=== PATIENT | female | born 1985 | race Caucasian/White ===

== ENCOUNTER 2024-05-28 09:49 | Emergency (ER) | payer OTHER, SELFPAY ==
--- NOTE | ~2024-05-28 | XR_ITS ---
EXAMINATION: XR CHEST CLINICAL INFORMATION: Chest pain. COMPARISON: None available. TECHNIQUE: Frontal view of the chest was obtained. FINDINGS: The lungs are clear. The cardiomediastinal silhouette is normal in size. There is no pleural effusion or pneumothorax. No acute osseous abnormality. XR/XR chest 1V IMPRESSION: No acute cardiopulmonary findings. Electronically signed by: Conner Camargo MD 05/28/2024 01:41 PM EDT
--- NOTE | 2024-05-28 09:56 | ECG_ITS ---
Test Reason : CP Blood Pressure : / mmHG Vent. Rate : 083 BPM Atrial Rate : 083 BPM P-R Int : 124 ms QRS Dur : 068 ms QT Int : 366 ms P-R-T Axes : 018 068 044 degrees QTc Int : 430 ms Normal sinus rhythm Nonspecific ST abnormality Abnormal ECG No previous ECGs available Referred By: Generic ED Physician Electronically Signed By:FWAN CALL MD
[2024-05-28 10:13] VITALS: BP 132/85; PULSE 78; RESP 18; TEMP 36.8; O2SAT 96; BMI 33.4
[2024-05-28 10:45] LABS: MANUAL DIFF FLAG NO
[2024-05-28 10:46] LABS: Basophils Percent Auto 0.5 % (0-2); Eosinophils Absolute Auto 0.3 X10*3/uL (0.0-0.4); Eosinophils Percent Auto 4.2 % (0-4); Hematocrit 42.4 % (37.0-47.0); Hemoglobin 14.6 g/dl (12.0-16.0); Imm Gran Abs Auto 0.03 X10*3/uL (0.00-0.03); Imm Gran Pct Auto 0.4 % (0.0-0.4); Lymphocytes Absolute Auto 2.2 X10*3/uL (1.2-4.9); Lymphocytes Percent Auto 27.9 % (20-40); Mean Corpuscular HGB Conc 34.4 g/dl (31.0-35.0); Mean Corpuscular Hemoglobin 31.5 pg (27.0-33.0); Mean Corpuscular Volume 91.6 fL (80.0-98.0); Mean Platelet Volume 9.5 fL (9.4-12.3); Monocytes Absolute Auto 0.6 X10*3/uL (0.1-1.2); Monocytes Percent Auto 7.4 % (2-11); Neutrophils Absolute Auto 4.6 x10*3/uL (2.0-8.3); Neutrophils Percent Auto 59.6 % (45-73); Platelet Count 271 X10*3/uL (160-400); Red Blood Count 4.63 X10*6/uL (4.20-5.50); Red Cell Distribution Width 12.1 % (11.0-16.0); White Blood Count 7.8 X10*3/uL (4.8-10.8)
[2024-05-28 11:01] LABS: Alanine Aminotransferase 27 U/L (0-31); Albumin Level 4.5 g/dL (3.5-5.0); Alkaline Phosphatase 56 U/L (39-117); Anion Gap 8 (12-20); Aspartate Amino Transferase 20 U/L (5-31); Bilirubin Total 0.6 mg/dL (0.0-1.0); Blood Urea Nitrogen 15 mg/dL (9-16); Calcium 9.9 mg/dL (8.4-10.2); Carbon Dioxide 26 mmol/L (22-29); Chloride 110 mmol/L (96-108); Creatinine Clr Calc Pharmacy 100.5; Estimated Glomerular Filt Rate > 60; Glucose Random 92 mg/dL (60-115); Potassium 4.1 mmol/L (3.3-5.1); Sodium 140 mmol/L (135-145)
[2024-05-28 11:09] LABS: Troponin-I High Sensitivity < 2.7 ng/L (<3.5-17.0)
[2024-05-28 11:22] LABS: Influenza A PCR NEGATIVE (Negative); Influenza B PCR NEGATIVE (Negative); Resp Syncy Virus RNA Qual PCR NEGATIVE (Negative); SARS COV2 PCR INHOUSE NEGATIVE (Negative)
--- NOTE | 2024-05-28 15:58 | ED.ASTHMA ---
HPI - Asthma General Chief Complaint: Asthma Stated Complaint: Chest pain, SOB Time Seen by Provider: 05/28/24 15:58 Source: patient Mode of arrival: ambulatory Limitations: no limitations History of Present Illness ED Provider: Queenie Fernandes PA-C HPI Narrative: Patient is a 39 year old assigned female at with a history of asthma presenting to the emergency department today with wheezing and a dry cough. Patient states that over the last week she has been having a cough and worsening wheezing. Patient states that her inhaler was helping but now she is out.. Patient denies any dizziness, lightheadedness, abdominal pain, nausea, vomiting, fever, chills, blurry vision, double vision, loss of vision, chest pain, difficulty breathing, shortness of breath, back pain, night sweats, pain with urination, increased urinary frequency, increased urinary urgency, blood in her urine or stool, syncope or a near syncopal episode, recent trauma or falls, bowel incontinence, bladder incontinence, or any other complaints at this time. Associated symptoms: dry cough Treatments Prior to Arrival: inhaled bronchodilator Related Data Previous Rx's ?Medication ?Instructions ?Recorded albuterol sulfate 90 mcg/actuation 1 inh inhalation QID PRN shortness 05/28/24 aerosol inhaler of breath or wheezing #8.5 grams prednisone 20 mg tablet 20 mg PO DAILY 12 days #26 tabs 05/28/24 Allergies Allergy/AdvReac Type Severity Reaction Status Date / Time No Known Allergies Allergy Verified 05/28/24 10:17 Review of Systems Constitutional: Constitutional: Reports no additional constitutional complaints, Denies chills, Denies fever(s) and Denies night sweats Eyes: Eyes: Reports no additional eye complaints, Denies blurry vision, Denies change in vision, Denies diplopia, Denies eye discharge, Denies loss of vision and Denies eye pain ENT: Denies dizziness Cardiovascular: Cardiovascular: Reports no additional cardiovascular complaints, Denies chest pain, Denies lightheadedness, Denies Loss of Consciousness and Denies dyspnea Respiratory: Respiratory: Reports no additional respiratory complaints, Reports cough, Denies dyspnea and Reports wheezing Gastrointestinal: Gastrointestinal: Reports no additional gastrointestinal complaints, Denies abdominal pain, Denies melena, Denies hematochezia, Denies change in bowel habits and Denies change in stool character Genitourinary: Genitourinary: Denies hematuria, Denies urinary frequency, Denies dysuria, Denies urinary incontinence, Denies urinary hesitancy and Denies urinary urgency Musculoskeletal: Musculoskeletal: Reports no additional musculoskeletal complaints, Denies numbness and Denies tingling Neurologic: Denies dizziness, Denies loss of vision, Denies numbness and Denies tingling Psychiatric: Psychiatric: Reports no additional psychiatric complaints Endocrine: Endocrine: Reports no additional endocrine complaints Hematologic/Lymphatic: Hematologic/Lymphatic: Reports no additional hematologic/lymphatic complaints Allergic/Immunologic: Allergic/Immunologic: Reports no additional allergic/immunologic complaints and Reports wheezing PMFSH Past Medical History Attestation statement: The following information was validated with the patient. Source: old records reviewed and nursing notes reviewed Social History Social History Advance Directives: No Advance Directives Information Provided: Yes Physical Exam Vital Signs: Vital Signs: Last Vital Signs Temp 0 F L 05/28/24 16:53 Pulse 82 05/28/24 16:53 Resp 18 05/28/24 16:53 BP 00/0 L 05/28/24 16:53 Pulse Ox 96 05/28/24 10:13 O2 Del Method Room Air 05/28/24 16:53 O2 Flow Rate 95 05/28/24 16:53 BMI result Body Mass Index 33.4 Const: General: cooperative, no acute distress, alert and awake Nutritional Appearance: well nourished Orientation/consciousness: patient oriented x3 Limitations: no limitations HEENT: Head: Yes normal to inspection and Yes atraumatic Ears: hearing grossly normal bilaterally and external ears normal General nose exam: Normal external nose present, no nasal discharge noted and no epistaxis Face and sinus: Yes normal facial exam, No abrasion and No laceration Mouth: Normal oral and palatal mucosa present, no drooling and no muffled voice Eyes: General: appearance normal, both eyes and all related structures Periorbital: periorbital findings normal Eyelids: Yes eyelids normal Conjunctivae: conjunctivae normal Pupils: Equal, round and reactive pupils present EOM: EOMs intact bilaterally Neck: Neck: Yes normal visual inspection, Yes full ROM and Yes no lymphadenopathy Chest: Chest palpation & inspection: normal inspection of the chest Resp: Effort & Inspection: normal respiratory effort, able to speak in complete sentences and Actively coughing Quality: dry Auscultation: wheezes throughout GI: Inspection: Yes normal to inspection Neuro: General: patient oriented x3 and moves all extremities Cranial nerves: Yes Equal, round and reactive pupils present Cognition (Neuro): normal cognition Extrem: General: Yes normal to inspection, Yes full ROM and Yes capillary refill normal Psych: Appearance: grossly normal Mental Status: mental status grossly normal Affect: normal affect Attitude: cooperative Thought process: Normal thought process present Thought content: Normal thought content present Insight: Good insight present (Psych) Medications Administered Discontinued Medications Generic Name Dose Route Start Last Admin Trade Name Graciela PRN Reason Stop Dose Admin Albuterol Sulfate 2 puff 05/28/24 16:40 05/28/24 16:46 Albuterol Sulfate 90 Mcg 8 Gm Inhaler INHALE 05/28/24 16:41 2 puff ONCE ONE Administration Albuterol Sulfate 5 mg/ 0 mg 05/28/24 16:12 05/28/24 16:19 Albuterol/Ipratropium 3 ml INHALE 05/28/24 16:13 7.5 each ONCE ONE Administration Methylprednisolone Sodium Succinate 60 mg 05/28/24 15:59 05/28/24 16:06 Methylprednisolone Sod Succ 125 Mg/2 Ml Vial IM 05/28/24 16:00 60 mg ONCE ONE Administration Medical Decision Making Medical Decision Making [facility] Narrative: Patient is a 39 year old assigned female at with a history of asthma presenting to the emergency department today with a cough and wheezing. Patient's physical exam was as noted in the physical exam portion of this note. Patient's blood work was unremarkable. Patient's EKG was unremarkable. Patient's chest x-ray showed no acute process. I explained my physical exam findings as well as all test results to the patient. I answered all questions asked by the patient. Patient received IM Solu-medrol and a breathing treatment which she stated helped her symptoms significantly. I stressed the importance of the patient taking her medication as directed (either prescribed or as the over the counter packaging recommends). I stressed the importance of the patient following up with her primary care provider. I stressed the importance of the patient returning to the emergency department immediately if her symptoms were to worsen or if she were to develop any dizziness, shortness of breath, difficulty breathing, chest pain, blurry vision, loss of vision, nausea, vomiting, abdominal pain, fever, chills, back pain, or any other complaints. Patient verbalized agreement and understanding with this treatment plan and discharge. Differential Diagnosis Differential Diagnoses: The differential diagnosis associated with the presentation includes Asthma exacerbation Cough Wheezing Admission/Observation Consideration of admission/observation: Escalation of care including admission/observation considered Patient would have been admitted to the hospital had her work up had any findings where hospital admission was appropriate and her clinical presentation warranted hospital admission. Lab Data [facility] Lab Attestation statement: I reviewed the patient's lab results. My interpretation of these results are in the [facility] Rationale portion of this note. 05/28/24 10:39 05/28/24 10:39 Labs: Lab Results 05/28/24 Range/Units 10:39 WBC 7.8 (4.8-10.8) X10*3/uL RBC 4.63 (4.20-5.50) X10*6/uL Hgb 14.6 (12.0-16.0) g/dl Hct 42.4 (37.0-47.0) % MCV 91.6 (80.0-98.0) fL MCH 31.5 (27.0-33.0) pg MCHC 34.4 (31.0-35.0) g/dl RDW 12.1 (11.0-16.0) % Plt Count 271 (160-400) X10*3/uL MPV 9.5 (9.4-12.3) fL Immature Gran % (Auto) 0.4 (0.0-0.4) % Neut % (Auto) 59.6 (45-73) % Lymph % (Auto) 27.9 (20-40) % [place] % (Auto) 7.4 (2-11) % Eos % (Auto) 4.2 H (0-4) % Baso % (Auto) 0.5 (0-2) % Lymph # (Auto) 2.2 (1.2-4.9) X10*3/uL [place] # (Auto) 0.6 (0.1-1.2) X10*3/uL Eos # (Auto) 0.3 (0.0-0.4) X10*3/uL Baso # (Auto) 0.0 (0.0-0.2) X10*3/uL Abs Immat Gran (auto) 0.03 (0.00-0.03) X10*3/uL Absolute Neuts (auto) 4.6 (2.0-8.3) x10*3/uL Absolute Nucleated RBC 0.000 (0.0-0.012) X10*3/uL Nucleated RBC % (auto) 0.0 (0.0-0.2) /100WBC Sodium 140 (135-145) mmol/L Potassium 4.1 (3.3-5.1) mmol/L Chloride 110 H (96-108) mmol/L Carbon Dioxide 26 (22-29) mmol/L Anion Gap 8 L (12-20) BUN 15 (9-16) mg/dL Creatinine 0.75 (0.5-1.4) mg/dL Estim Creat Clear Calc 100.5 Estimated GFR > 60 Random Glucose 92 (60-115) mg/dL Calcium 9.9 (8.4-10.2) mg/dL Total Bilirubin 0.6 (0.0-1.0) mg/dL AST 20 (5-31) U/L ALT 27 (0-31) U/L Alkaline Phosphatase 56 (39-117) U/L Troponin I High Sens < 2.7 (<3.5-17.0) ng/L Total Protein 8.0 (6.5-8.0) g/dL Albumin 4.5 (3.5-5.0) g/dL Influenza Type A (PCR) NEGATIVE (Negative) Influenza Type B (PCR) NEGATIVE (Negative) RSV RNA Qual (PCR) NEGATIVE (Negative) SARS-CoV-2 RNA (RT-PCR) NEGATIVE (Negative) Independent Interpretation I performed an independent interpretation of an: Plain X-Ray Interpretation: My interpretation is in agreement with the radiologist's impression of this imaging study. EXAMINATION: XR CHEST CLINICAL INFORMATION: Chest pain. COMPARISON: None available. TECHNIQUE: Frontal view of the chest was obtained. FINDINGS: The lungs are clear. The cardiomediastinal silhouette is normal in size. There is no pleural effusion or pneumothorax. No acute osseous abnormality. XR/XR chest 1V IMPRESSION: No acute cardiopulmonary findings. Electronically signed by: Conner Camargo MD 05/28/2024 01:41 PM EDT Dictated By: Conner Camargo MD Signed By: Electronically signed by Conner Camargo MD 05/28/24 2261 Radiology Impression Discussion of test interpretation with radiology: I have reviewed the radiologist's reading. Discharge Plan Discharge Clinical Impression: Asthma with acute exacerbation Patient Disposition: Home, Self-Care Instructions: Asthma (DC) Additional Instructions: Follow up with your primary care provider. Return to the emergency department immediately if your symptoms worsen or if you develop any dizziness, shortness of breath, difficulty breathing, chest pain, blurry vision, loss of vision, nausea, vomiting, abdominal pain, fever, chills, back pain, or any other complaints. Prescriptions: New albuterol sulfate 90 mcg/actuation HFA aerosol inhaler 1 inh inhalation QID PRN (Reason: shortness of breath or wheezing) Qty: 8.5 0RF prednisone 20 mg tablet 20 mg PO DAILY 12 Days Qty: 26 0RF Rx Instructions: Take 3 tablets for 5 days THEN; Take 2 tablets for 4 days THEN; Take 1 tablet for 3 days Referrals: [facility] Family Medicine [Provider Group] (Call to establish and follow up with a primary care provider. If you already have a primary care provider, please follow up with them.) [facility] [Provider Group] (Call to establish and follow up with a primary care provider. If you already have a primary care provider, please follow up with them.) [facility] [Provider Group] (Call to establish and follow up with a primary care provider. If you already have a primary care provider, please follow up with them.) Stand Alone Forms: Work/School Release Interventions: ED Discharge Assessment Last Done: 05/28/24 16:53 Discharge Date/Time: 05/28/24 16:56 Print Language: Ghanaian
[2024-05-28] MEDS: methylPREDNISolone Sod Succ 125 MG/2 ML VIAL 60 MG IM (16:06)
[2024-05-28 16:12] VITALS: PULSE 76; RESP 25; O2SAT 97
[2024-05-28] MEDS: Albuterol Sulfate 5 MG, Albuterol/Iprat 2.5/0.5MG 3 ML 3 ML INHALE (16:19)
[2024-05-28] MEDS: Albuterol Sulfate 90 MCG 8 GM INHALER 2 PUFF INHALE (16:46)
[2024-05-28 16:47] VITALS: PULSE 82; RESP 18; O2SAT 98
[2024-05-28 16:53] VITALS: BP 00/0; PULSE 82; RESP 18; TEMP -17.7; TEMP 0
== END 2024-05-28 16:56 | disposition home or self-care (01) ==
PROVIDERS: Emergency Provider Emergency Medicine
DX: J45.901 Unspecified asthma with (acute) exacerbation (principal); R05.9 Cough, unspecified; R07.89 Other chest pain; Z03.818 Encounter for observation for suspected exposure to other biological agents ruled out; Z79.899 Other long term (current) drug therapy
CPT/HCPCS: 0241U; 71045; 80053; 84484; 85025; 93005; 94640; 96372; 99284; 99285; J2919

== ENCOUNTER → 2024-05-28 09:56 | Outpatient (BNV) | payer OTHER, SELFPAY | PROVIDERS: Visit Provider Internal Medicine Cardiovascular Disease | DX: R07.9 Chest pain, unspecified (principal); R06.02 Shortness of breath | CPT/HCPCS: 93010 ==

== ENCOUNTER 2024-12-04 09:46 | Emergency (ER) | payer OTHER, SELFPAY ==
--- NOTE | ~2024-12-04 | XR_ITS ---
EXAMINATION: XR SHOULDER, LEFT CLINICAL INFORMATION: pain, tingling COMPARISON: None available. TECHNIQUE: AP external rotation, Grashey, scapular Y, and axillary views of the left shoulder. FINDINGS: Normal bone mineralization. No fracture, dislocation, or suspicious bone lesion. Normal alignment. The glenohumeral joint is normal. The AC joint is normal. There is a type III acromion. No undersurface spurring. The subacromial space is preserved. Remainder of the soft tissue and bony structures appear normal. XR/XR shoulder LT min 2V IMPRESSION: Normal left shoulder. Electronically signed by: Casey Mar MD 12/04/2024 10:39 AM EDT
[2024-12-04 10:10] VITALS: BP 127/81; PULSE 71; RESP 16; TEMP 37; O2SAT 97; BMI 33.0
--- NOTE | 2024-12-04 11:18 | ED.EXTPRO ---
HPI - Extremity Problem General Chief complaint: Extremity Problem Stated complaint: 2 Weeks- L Shoulder/ Arm Pain Time Seen by Provider: 12/04/24 11:18 Source: patient and RN notes reviewed Mode of arrival: ambulatory Limitations: no limitations History of Present Illness ED Provider: Delmis Li PA-C HPI Narrative: This is a 39-year-old female, with a history of prediabetes, who presents emergency department with concerns for left shoulder pain for the last 2 weeks. Patient denies any recent trauma or injury. 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 Patient states that her pain is constant however worsens with movement. She denies any chest pain or shortness of breath. Denies taking any medications at home to treat her current symptoms. She denies any recent travel, surgery, hospitalizations. No other complaints or concerns at this time. MD Complaint: extremity pain Onset (ago): week(s) Pain Consistency: constant Location: left and upper extremity Quality: aching Radiation: none Relieving factors: immobilization Exacerbating factors: range of motion and palpation Associated symptoms: denies other symptoms Related Data Previous Rx's ?Medication ?Instructions ?Recorded albuterol sulfate 90 mcg/actuation 1 inh inhalation QID PRN shortness 05/28/24 aerosol inhaler of breath or wheezing #8.5 grams prednisone 20 mg tablet 20 mg PO DAILY 12 days #26 tabs 05/28/24 acetaminophen 500 mg tablet 1,000 mg (2 x 500 mg) PO Q6H PRN 12/04/24 (Tylenol Extra Strength) pain #30 tabs ibuprofen 600 mg tablet 600 mg PO Q6H PRN pain #30 tabs 12/04/24 lidocaine 4 % topical patch 1 patch topical DAILY PRN pain #30 12/04/24 (AsperFlex (lidocaine)) ea Allergies Allergy/AdvReac Type Severity Reaction Status Date / Time No Known Allergies Allergy Verified 12/04/24 10:12 Review of Systems Review of Systems: Yes all other systems are reviewed and are negative Constitutional: Constitutional: Reports as per [facility] Social History Social History Advance Directives: No Advance Directives Information Provided: Yes Physical Exam Vital Signs: Vital Signs: Last Vital Signs Temp 98.6 F 12/04/24 10:10 Pulse 71 12/04/24 10:10 Resp 16 12/04/24 10:10 BP 127/81 12/04/24 10:10 Pulse Ox 97 12/04/24 10:10 O2 Del Method Room Air 12/04/24 10:10 BMI result Body Mass Index 33.0 Const: General: cooperative, comfortable and no acute distress Orientation/consciousness: patient oriented x3 Limitations: no limitations HEENT: Head: Yes normal to inspection, Yes normocephalic and Yes atraumatic Ears: hearing grossly normal bilaterally General nose exam: Normal external nose present Face and sinus: Yes normal facial exam Mouth: Normal oral and palatal mucosa present, oropharynx normal and moist mucous membranes Throat: Yes posterior oropharynx normal Eyes: General: appearance normal, both eyes and all related structures Eyelids: Yes eyelids normal Conjunctivae: conjunctivae normal Sclerae: sclerae normal Pupils: Equal, round and reactive pupils present EOM: EOMs intact bilaterally Neck: Neck: Yes normal visual inspection, Yes full ROM and Yes no lymphadenopathy Lymphatic: no lymphadenopathy noted Chest: Chest palpation & inspection: normal inspection of the chest Resp: Effort & Inspection: normal respiratory effort and able to speak in complete sentences Auscultation: clear to auscultation bilaterally, no crackles, no rales, no rhonchi and no wheezes Cardio: Rate: regular rate Rhythm: regular rhythm Heart sounds: S1 normal heart sound present and S2 normal heart sound present GI: Inspection: Yes normal to inspection Skin: General skin exam: no rashes or lesions noted Trauma: no lacerations or abrasions Wounds: no wounds Neuro: General: patient oriented x3 and moves all extremities Cranial nerves: Yes Equal, round and reactive pupils present Extrem: Other: Left shoulder tender to palpation along the AC joint, full ROM with pain elicited. No overlying skin changes or warmth. Negative empty can, pain with lift-off test. Strong radial pulse. General: Yes normal to inspection Right upper extremity: normal to inspection Left upper extremity: normal to inspection Right lower extremity: normal to inspection Left lower extremity: normal to inspection Medical Decision Making Medical Decision Making MDM Narrative: This is a 39-year-old female who presents emergency department with complaints of left shoulder pain. On arrival, vital signs within normal limits. She was speaking in full sentences under no acute distress. Patient with tenderness palpation along the left AC joint. She has no chest pain or shortness of breath. Pain worsens with movement and with palpation. X-rays were performed without any bony abnormality seen. Given patient has tenderness palpation along the left AC joint, this may be rotator cuff like injury. She has good range of motion therefore complete rupture is unlikely however patient given referral to Orthopedics for further evaluation. Given strict return precautions. She understands and agrees with plan. Patient stable for discharge. Differential Diagnosis Differential Diagnoses: The differential diagnosis associated with the presentation includes Tendonitis, fracture, contusion, sprain, strain, rotator cuff injury Radiology Impression Discussion of test interpretation with radiology: I have reviewed the radiologist's reading. Radiologist Impression: [address] [address] XRay Report Signed Patient: Meena Virk MR#: [id number] : 1985 Acct:[id number] Age/Sex: 39 / F ADM Date: 12/04/24 Loc: .ED Attending Dr: Ordering Physician: Generic ED Physician Date of Service: 12/04/24 Procedure(s): XR shoulder LT min 2V Accession Number(s): [id number] cc: KATIE ESCOBAR; Generic ED Physician~ EXAMINATION: XR SHOULDER, LEFT CLINICAL INFORMATION: pain, tingling COMPARISON: None available. TECHNIQUE: AP external rotation, Grashey, scapular Y, and axillary views of the left shoulder. FINDINGS: Normal bone mineralization. No fracture, dislocation, or suspicious bone lesion. Normal alignment. The glenohumeral joint is normal. The AC joint is normal. There is a type III acromion. No undersurface spurring. The subacromial space is preserved. Remainder of the soft tissue and bony structures appear normal. XR/XR shoulder LT min 2V IMPRESSION: Normal left shoulder. Electronically signed by: Casey Mar MD 12/04/2024 10:39 AM EDT Dictated By: Casey Mar MD Discharge Plan Discharge Clinical Impression: Strain of left shoulder Patient Disposition: Home, Self-Care Instructions: Muscle Strain (ED) Additional Instructions: You were seen in the emergency department due to left shoulder pain. Your x-ray does not show any bony abnormalities. You may have some injury to your tendons or ligaments in your shoulder therefore want you to follow-up with the rehabilitation construction specialist. Call today to make an appointment. You may alternate between ibuprofen and or Tylenol as needed for pain and symptoms. If any new or worsening symptoms occur including but not limited to severe chest pain or shortness for breath or inability to move your left shoulder, please seek emergent care. Prescriptions: New ibuprofen 600 mg tablet 600 mg PO Q6H PRN (Reason: pain) Qty: 30 0RF acetaminophen [Tylenol Extra Strength] 500 mg tablet 1,000 mg PO Q6H PRN (Reason: pain) Qty: 30 0RF lidocaine [AsperFlex (lidocaine)] 4 % adhesive patch,medicated 1 patch topical DAILY PRN (Reason: pain) Qty: 30 0RF No Action albuterol sulfate 90 mcg/actuation HFA aerosol inhaler 1 inh inhalation QID PRN (Reason: shortness of breath or wheezing) Qty: 8.5 0RF prednisone 20 mg tablet 20 mg PO DAILY 12 Days Qty: 26 0RF Rx Instructions: Take 3 tablets for 5 days THEN; Take 2 tablets for 4 days THEN; Take 1 tablet for 3 days Referrals: [facility] [Provider Group] Stand Alone Forms: Work/School Release Discharge Date/Time: 12/04/24 11:59 Print Language: Lithuanian
--- OUTSIDE RECORDS SUMMARY | 2024-12-04 13:53 | XMS_ITS | Clinical Summary ---
Author Organization [facility] Address [address] [place] [address] Care Team Providers Care Shelf Drier Operator Name Role Phone Charlielatasha Brooke Raymond Primary Care Provider [phone] Allergies No known active allergies Medications pantoprazole (PROTONIX) 40 mg EC tablet Take 40 mg by mouth in the morning. 11/04/2021 Active montelukast (SINGULAIR) 10 mg tablet Take 10 mg by mouth in the morning. 02/18/2022 Active fluticasone HFA (FLOVENT HFA) 44 mcg/actuation inhaler Inhale 1 puff 2 times daily. 07/05/2022 Active Social History Tobacco Use Types Packs/Day Years Used Date Smoking Tobacco: Never Smokeless Tobacco: Never Tobacco Cessation:Counseling Given: Not Answered Alcohol Use Standard Drinks/Week Comments Never 0 (1 standard drink = 0.6 oz pur e alcohol) Comments Unknown Sex and Gender Information Value Date Recorded Sex Assigned at Not on file Legal Sex Female 9:51 AM EDT Gender Identity Not on file Sexual Orientation Not on file Last Filed Vital Signs Vital Sign Reading Time Taken Comments Blood Pressure - - Pulse - - Temperature - - Respiratory Rate - - Oxygen Saturation - - Inhaled Oxygen Concentration - - Weight 85.3 kg (188 lb) 08/03/2022 10:48 AM EST Height 157.5 cm (5' 2 ) 08/03/2022 10:48 AM EST Body Mass Index 34.39 08/03/2022 10:48 AM EST Plan of Treatment Health Maintenance Due Date Last Done Comments HIV Screening 1985 DTaP,Tdap,and Td Vaccines (1 - Tdap) 2003 Hepatitis C Screening 2003 Hepatitis B Vaccines (1 of 3 - 19+ 3-dose series) 01/21/2004 Pneumococcal Vaccine: Pediatrics (0 to 5 Years) and At-Risk Patients (6 to 49 Years) (1 of 2 - PCV) 01/21/2004 Pap Smear 2006 Cervical Cancer Screening 2015 HPV/Cotest 2015 COVID-19 Vaccine (3 - season) 2024 01/06/2021, 12/16/2020 Influenza Vaccine (Season Ended) 2025 06/14/2022, 07/21/2021, 06/11/2019, Additional history exists Zoster Vaccines (1 of 2) 2035 HPV Vaccines Aged Out No longer eligi ble based on patient's age to complete this topic Hepatitis A Vaccines Aged Out No long er eligible based on patient's age to complete this topic MMR Vaccines Aged Out No longer eligi ble based on patient's age to complete this topic Meningococcal Vaccine Aged Out No gracia omayra eligible based on patient's age to complete this topic Insurance MEDICAID HUSKY A Care Teams Shelf Drier Operator Relationship Specialty Start Date End Date Brooke Caldwell [address] [address] [place] [address] PCP - General Internal Medicine 06/16/22
== END 2024-12-04 11:59 | disposition home or self-care (01) ==
PROVIDERS: Emergency Provider Emergency Medicine; PCP Nurse Practitioner Family
DX: S46.912A Strain of unspecified muscle, fascia and tendon at shoulder and upper arm level, left arm, initial encounter (principal); X50.3XXA Overexertion from repetitive movements, initial encounter; Y93.G2 Activity, grilling and smoking food; Y92.511 Restaurant or cafe as the place of occurrence of the external cause; Y99.0 Civilian activity done for income or pay
CPT/HCPCS: 73030; 99281; 99283

== ENCOUNTER → 2024-12-04 10:20 | Outpatient (BNV) | payer OTHER, SELFPAY | PROVIDERS: PCP Nurse Practitioner Family; Visit Provider Radiology Diagnostic Radiology | DX: M25.512 Pain in left shoulder (principal); R20.2 Paresthesia of skin | CPT/HCPCS: 73030 ==

== ENCOUNTER 2025-02-05 12:23 | Outpatient (AMB) | payer OTHER, SELFPAY ==
--- NOTE | 2025-02-05 12:39 | A.OFFVIS_ITS ---
Vital Signs 02/05/25 13:00 Height 5 ft 2 in Weight 180 lb BMI 32.9 Intake Visit Reasons: ED f/u- Left shoulder strain Intake Note: Meena is a 40 year old left hand dominant female who presents for an ER follow up of left shoulder strain. Patient was seen at [facility] for ongoing shoulder pain for the past week. She reported that she works at [employer] that requires a lot of repetitive arm movement. Denies any traumatic injury. Patient reports intermittent pain that is located at the top of her shoulder. States her ROM has improved however she is still limited. She has concerns of a visual deformity in her shoulder. At night with sleeping she has tingling sensations in her shoulder. No pain relief with taking ibuprofen. No other treatment. Allergies No Known Allergies Allergy (Verified 02/05/25 12:50) Medication List - Last Reconciled 02/05/25 by Sugar Oliver PA-C albuterol sulfate 90 mcg/actuation 1 inh inhalation QID PRN escitalopram oxalate 10 mg PO DAILY lidocaine 4% (AsperFlex (lidocaine)) 1 patch topical DAILY PRN tirzepatide (weight loss) (Zepbound) 2.5 mg subcut QWEEK HPI HPI ED f/u- Left shoulder strain: Details: A 40-year-old female presents to the office today for left shoulder pain. She states the pain has been present for several weeks and is interfering with daily activities. She denies injury. She complains of discomfort with overhead reaching repetitive motion. She also has discomfort when she is sleeping at night. [facility] Surgical History (Updated 02/05/25 @ 12:53 by CHARITY Swartz) Hx of removal of cyst Social History (Updated 02/05/25 @ 12:53 by CHARITY Swartz) Patient Tobacco Use Status: Never used Tobacco Current occupational status: employed Current occupation: [email or web address], left hand dominant Review of Systems Const All systems reviewed & are unremarkable except as noted in HPI and below Physical Exam Vital Signs: BMI result Body Mass Index 32.9 Const General: cooperative and no acute distress Orientation/consciousness: patient oriented x3 Resp Effort & Inspection: normal respiratory effort and able to speak in complete sentences Cardio Peripheral pulses: Peripheral pulses 2+ throughout Neuro General: patient oriented x3 Extrem Other: Left shoulder normal to inspection. She has tenderness over the AC joint and positive cross-body adduction. She has a positive [place]'s. 5/5 rotator cuff strength. Office Procedures AMB Joint Injection/Aspiration Joint Injection/Aspiration Primary Site: left shoulder Prep: site was prepped using aseptic technique, ethochloride spray was applied and injection warnings given Injected: 80 mg of, DepoMedrol, with 8 mL of, 1% plain lidocaine and in the subcromial space Approach Used: posterolateral Procedure: The patient tolerated the procedure well and there was some relief with the local anesthesia Coding - Glenohumeral/Tronchanteric Bursa/Intraarticular Procedure code (CPT) selection complete Results Reviewed Results Reviewed: X-rays of the left shoulder obtained in November of 2024 significant for subacromial bursitis Assessment & Plan Assessment & Plan (1) Subacromial bursitis of left shoulder joint: Code(s): M75.52 - Bursitis of left shoulder Category: Medical Plan: We discussed options today which include conservative measures with physical therapy work on strength and conditioning exercises. I also discussed the benefits of a steroid injection which she would like to proceed with today. Patient tolerated left shoulder injection. She will contact physical therapy to make an appointment. If over the next 6-8 weeks she continues to have discomfort or there is any concerns she can contact office otherwise follow up as needed. Orders: Orders PT Evaluation and Treatment Today M75.52 - Bursitis of left shoulder Medications: Discontinued prednisone Take 3 tablets for 5 days THEN; Take 2 tablets for 4 days THEN; Take 1 tablet for 3 days Discontinued Reason: Patient Completed Course 20 mg PO DAILY 12 days 26 tabs 0RF acetaminophen (Tylenol Extra Strength) Discontinued Reason: Patient no longer taking 1,000 mg (2 x 500 mg) PO Q6H PRN 30 tabs 0RF pain ibuprofen Discontinued Reason: Patient no longer taking 600 mg PO Q6H PRN 30 tabs 0RF pain Coding Level of Care Code New Pt Level 3 (88543) Complex EM visit Add On G2211 Diagnoses Subacromial bursitis of left shoulder joint M75.52 CPT Codes Coding - Joint 7: 30105 - Glenohumeral/Tronchanteric Bursa/Intraarticular ([id number])
[2025-02-05 13:00] VITALS: BMI 32.9
--- OUTSIDE RECORDS SUMMARY | 2025-02-05 14:15 | XMS_ITS | Encounter Summary ---
Author Organization [facility] Address [address] [place] [address] Care Team Providers Care Urinalysis Technician Name Role Phone Brooke Caldwell MD Primary Care Provider Zach Cardenas MD Unavailable [phone] Brooke Caldwell MD Unavailable [phone] Reason for Visit * Reason Comments Medication Refill Encounter Details Date Type Department Care Team (Late st Contact Info) Description 04/09/2022 Refill [facility] General Surgery [address] [address] Emelyn Oconnell MD [address] [place] [id number] Chronic cholecystitis Social History Tobacco Use Types Packs/Day Years Used Date Smoking Tobacco: Never Smokeless Tobacco: Never Alcohol Use Standard Drinks/Week Comments Never 0 (1 standard drink = 0.6 oz pur e alcohol) PHQ-2 Answer Date Recorded PHQ-2 Total Score 0 07/21/2021 Comments No Sex and Gender Information Value Date Recorded Sex Assigned at Female 10/04/2022 10:47 AM EST Legal Sex Female 10:31 AM EDT Gender Identity Female 07/20/2021 9:29 PM EST Sexual Orientation Choose not to disclose 2022 10:47 AM EST COVID-19 Exposure Response Date Recorded In the last 10 days, have yo u been in contact with someone who was confirmed or suspected to have Coronavirus/COVID-19? No / Unsure 03/16/2022 8:24 AM EDT documented as of this encounter Plan of Treatment Not on file documented as of this encounter Visit Diagnoses Diagnosis Chronic cholecystitis documented in this encounter Care Teams Urinalysis Technician Relationship Specialty Start Date End Date Brooke Caldwell MD 5 [facility] [address] [address] PCP - General Internal Medicine 07/21/21 Brooke Caldwell MD [address] [place] [address] PCP - [facility]+ Attributed 05/21/22 Zach Cardenas MD [address] [place] [address] Surgery, Orthopedic 08/03/22 documented as of this encounter
== END 2025-02-05 14:22 | disposition home or self-care (01) ==
LOC: HO.HOS 12:24
PROVIDERS: PCP Nurse Practitioner Family; Visit Provider Physician Assistant
DX: M75.52 Bursitis of left shoulder (principal)
CPT/HCPCS: 20610; 99203

== ENCOUNTER → 2025-02-05 12:23 | Outpatient (BNVA) | payer OTHER, SELFPAY | PROVIDERS: PCP Nurse Practitioner Family; Visit Provider Physician Assistant | DX: M75.52 Bursitis of left shoulder (principal); S46.912A Strain of unspecified muscle, fascia and tendon at shoulder and upper arm level, left arm, initial encounter; X50.3XXA Overexertion from repetitive movements, initial encounter; Y93.G9 Activity, other involving cooking and grilling; Y92.511 Restaurant or cafe as the place of occurrence of the external cause; Y99.0 Civilian activity done for income or pay | CPT/HCPCS: 20610; 99202; J1010; J2003 ==

== ENCOUNTER 2025-08-12 19:55 | Emergency (ER) | payer OTHER, SELFPAY ==
--- NOTE | 2025-08-12 | ECG_ITS ---
Test Reason : chest pain Blood Pressure : */* mmHG Vent. Rate : 89 BPM Atrial Rate : 89 BPM P-R Int : 148 ms QRS Dur : 68 ms QT Int : 360 ms P-R-T Axes : 77 75 66 degrees QTcB Int : 438 ms Normal sinus rhythm Nonspecific ST abnormality Abnormal ECG When compared with ECG of 28-May-2024 09:54, No significant change was found Referred By: Generic ED Physician Electronically Signed By: FAWN CALL MD
--- NOTE | ~2025-08-12 | XR_ITS ---
CLINICAL HISTORY: Shortness of breath 1 view chest x-ray Comparison: CR/SR - XR CHEST 1 VIEW - 05/28/24 10:29 EDT Findings: No consolidation or effusion. Heart size is normal. No acute fracture. Cholecystectomy clips. IMPRESSION: 1. No acute findings. This document has been electronically signed by: Gabriel Nunez MD on 08/12/2025 21:58:47
[2025-08-12 20:15] VITALS: BP 110/63; PULSE 82; RESP 20; TEMP 36.8; O2SAT 94; BMI 27.2
--- OUTSIDE RECORDS SUMMARY | 2025-08-12 20:42 | XMS_ITS | Clinical Summary ---
Author Organization [facility] Address [address] [place] [address] Care Team Providers Care Manager Of Administration Name Role Phone Unavailable Primary Care Provider Unavailabl e Medications ibuprofen (MOTRIN) 800 MG tablet 1 tab(s) 3 times a day, orally 01/08/2018 Active Social History Tobacco Use Types Packs/Day Years Used Date Smoking Tobacco: Never Assessed Comments Unknown Sex and Gender Information Value Date Recorded Sex Assigned at Not on file Legal Sex Female 4:18 PM EST Gender Identity Not on file Sexual Orientation Not on file Last Filed Vital Signs Vital Sign Reading Time Taken Comments Blood Pressure - - Pulse - - Temperature - - Respiratory Rate - - Oxygen Saturation - - Inhaled Oxygen Concentration - - Weight 85.3 kg (188 lb) 01/08/2019 8:30 AM EDT Height 157.5 cm (5' 2 ) 01/08/2019 8:30 AM EDT Body Mass Index 34.39 01/08/2019 8:30 AM EDT Plan of Treatment Health Maintenance Due Date Last Done Comments Blood Pressure 1985 Lipid Panel 1985 Depression Screening 1997 Hepatitis C Screening 2003 DTaP,Tdap,and Td Vaccines (1 - Tdap) 01/21/2004 Pap Smear 2006 Cervical Cancer Screening 2015 HPV/Cotest 2015 Breast Cancer Screening 2025 COVID-19 Vaccine (2024-2 6 season) 2025 Influenza Vaccine (#1) 2025 Meningococcal B Vaccines Aged Out No longer eligible based on patient's age to complete this topic Meningococcal Vaccines Aged Out No lo nger eligible based on patient's age to complete this topic Pneumococcal Vaccine Aged Out No long er eligible based on patient's age to complete this topic
--- OUTSIDE RECORDS SUMMARY | 2025-08-12 20:42 | XMS_ITS | Encounter Summary ---
Author Organization [facility] Address [address] [place] [address] Care Team Providers Care Schedule Supervisor Name Role Phone Brooke Caldwell MD Primary Care Provider Zach Cardenas MD Unavailable [phone] Brooke Caldwell MD Unavailable [phone] Encounter Details Date Type Department Care Team (Late st Contact Info) Description 10/20/2021 Scanned Document [facility] General Surgery [address] [phone] Emelyn Oconnell MD [address] [place] [id number] Social History Tobacco Use Types Packs/Day Years [...] Exposure Response Date Recorded In the last month, have you been in contact with someone who was confirmed or suspected to have Coronavirus / COVID-19? No / Unsure 10/22/2021 10:13 AM EST documented as of this encounter Plan of Treatment Not on file documented as of this encounter Visit Diagnoses Not on filedocumented in this encounter Care Teams Schedule Supervisor Relationship Specialty Start Date End Date Brooke Caldwell MD [address] [address] PCP - General Internal Medicine 07/21/21 Brooke Caldwell MD [address] [place] [address] PCP - [facility]+ Attributed 05/21/22 Zach Cardenas MD [address] [place] [address] Surgery, Orthopedic 08/03/22 documented as of this encounter
--- OUTSIDE RECORDS SUMMARY | 2025-08-12 20:42 | XMS_ITS | Clinical Summary ---
Author Organization [facility] Address [address] [place] [address] Care Team Providers Care Radio Interference Investigator Name Role Phone Brooke Caldwell MD Primary Care Provider Zach Cardenas MD Unavailable [phone] Allergies No known active allergies Medications montelukast (SINGULAIR) 10 MG tabletIndications :Mild intermittent asthma without complication,Seas onal allergies Take 1 tablet (10 mg total) by mouth nightly. 30 tablet 3 3 Active PANTOprazole (PROTONIX) 40 MG EC tabletIndications :Helicobacter pylori gastritis Take 1 tablet (40 mg total) by mouth every morning before breakfast. 90 tablet 3 3 Active albuterol (PROVENTIL HFA; VENTOLIN HFA) 108 (90 Base) MCG/ACT inhalerIndication s:Mild intermittent asthma without complication Inhale 2 puffs 4 times daily (every 6 hours) as needed for wheezing. 1 each 3 3 Active fluticasone (FloVENT HFA) 44 mcg/puff inhalerIndication s:Mild intermittent asthma without complication Inhale 1 puff 2 (two) times a day. 10.6 g 11 3 Active Active Problems Problem Noted Date Diagnosed Date Family history of BRCA gene mutation 10/04/2022 Assessment & Plan (10/04/2022 2:42 PM EST): Patient states that she has two maternal aunts that have breast cancer and have tested positive for BRCA gene and 2 maternal cousins that also have breast cancer. She is concerned that she may be carrier for the gene. S There is also family history of thyroid cancer in two family members on her mothers side. She will benefit from discussion with a genetic counselor to discuss her potential risks and recommendations for testing/screening Referral orders placed Ganglion cyst of dorsum of right wrist Assessment & Plan (10/04/2022 2:43 PM EST): Seen and evaluated by ortho and was advised to enroll in PT and continue wearing wrist brace Assessment & Plan (06/14/2022 2:11 PM EDT): Patient reports involving her wrist, arm and shoulder that disturbs her sleep at night and development of a ganglion cyst a few weeks ago. She is right handed but denies repetitive movements or recent trauma/injury to her right arm. She was seen and evaluated by urgent care and referred to orthopedic surgery. New referrral placed as the clinic does not take medicaid. Advised that she wear a wrist brace in the interim. Class 1 obesity due to exces s calories without serious comorbidity with body mass index (BMI) of 34.0 to 34.9 in adult 06/14/2022 Assessment & Plan (06/14/2022 2:14 PM EDT): Patient states that she has been trying to lose weight by increasing physical activity and monitoring her portions but has not had much success. She is interest in medical weight loss options. Referral placed to medical weight management clinic. Back injury 02/18/2022 Assessment & Plan (02/18/2022 8:37 AM EDT): Patient sustained back injury last month and was given a doctor's note to stay off of work until March 09. She states that she is feeling much better and would like to return to work next week. Provided with work note indicating that she can return to work without restrictions on February 22, 2022. Chronic cholecystitis 12/09/2021 Overview (12/09/2021): Added automatically from request for surgery [id number] Kidney stone on left side 10/19/2021 Assessment & Plan (10/19/2021 10:09 AM EST): nonobstructing 5 mm calculus lower pole left kidney noted on recent abdominal ultrasound. Patient states that she has had intermittent left sided abdominal pain. Denies hematuria or dysuria. Advised to drink plenty of fluids. Will refer to urology for recommendations. Calculus of gallbladder with out cholecystitis without obstruction 10/19/2021 Assessment & Plan (10/19/2021 10:14 AM EST): Patient has a surgery consult later this week to discuss elective cholecystectomy as she is symptomatic with pain following meals Epigastric pain 10/06/2021 Overview (10/06/2021): Added automatically from request for surgery [id number] Left upper quadrant pain 10/06/2021 Overview (10/06/2021): Added automatically from request for surgery [id number] History of endometrial ablation 07/21/2021 Assessment & Plan (02/18/2022 8:33 AM EDT): Patient states that when she was living in [place] she was having heavy menstrual bleeding lasting for 10 to 15 days and had an endometrial ablation around 2017- 2017. She states that she was also told she had cysts, unclear if these were ovarian cysts. She states that since the ablation her menstrual cycle has not been as heavy. She would like to establish with a cabinet installer for follow-up. Order placed. Assessment & Plan (07/21/2021 9:12 AM EST): Patient states that when she was living in [place] she was having heavy menstrual bleeding lasting for 10 to 15 days and had an endometrial ablation around 2017- 2018. She states that she was also told she had cysts, unclear if these were ovarian cysts. She states that since the ablation her menstrual cycle has not been as heavy. She would like to establish care with a cabinet installer for follow-up. GERD (gastroesophageal reflux disease) Assessment & Plan (10/19/2021 10:10 AM EST): Has EGC scheduled for later this month. Continue famotidine 20mg twice daily Assessment & Plan (07/21/2021 9:16 AM EST): Patient states that she has a constant midepigastric pain which is exacerbated when she eats some fruits. She does not eat spicy foods but does endorse drinking coffee. She denies any unusual weight loss, denies melena or guicho blood in stools. Denies nausea or vomiting. Per chart review previous PCP in [place] had tried her on omeprazole and famotidine with minimal relief. They had recommended she follow-up for further work-up but it appears that she moved shortly afterwards. Will refer to GI for possible endoscopy. Vitamin D deficiency 07/21/2021 Assessment & Plan (07/21/2021 9:17 AM EST): Per chart review last vitamin D in 2019 was 17. Patient does not take any vitamin D supplements and endorses ongoing fatigue. will check vitamin D levels. History of anemia 07/21/2021 Assessment & Plan (07/21/2021 9:17 AM EST): Patient states that she was told she was anemic in the past due to menstrual cycle blood loss. She has not been taking any iron supplementation and endorses ongoing fatigue. Will check CBC and iron levels. Mild intermittent asthma without complication Assessment & Plan (02/18/2022 8:36 AM EDT): Patient reports that over the past several weeks she has been dealing with seasonal allergies with sneezing in the morning, itchy watery eyes and more coughing than usual. Will start patient on montelukast 10 mg nightly for better control of symptoms. Assessment & Plan (10/19/2021 10:12 AM EST): Patient states she get SOB at night about once per week. This resolves with albuterol inhaler. No clear triggers. Continue albuterol PRN and flovent 1 puff twice daily Assessment & Plan (08/19/2021 12:16 PM EST): -add flovent BID -continue albuterol prn -counseled on signs that would prompt urgent eval -call for follow up if not improved in 2 weeks Assessment & Plan (07/21/2021 9:20 AM EST): Patient states that she was told she has asthma years ago and had been using an albuterol inhaler intermittently. On physical exam today she is wheezing. She states that she has had to use a friend's albuterol inhaler this past week due to shortness of breath cough, and wheezing. She states that lately the wheezing and shortness of breath has been worse at night. Prescribed albuterol inhaler 2 puffs every 6 hours for wheezing. Advised patient to keep track of her symptoms and we will continue to monitor and escalate treatment if necessary. Immunizations Immunization Administration Dates Next Due Covid-19 MRNA Vaccine - Teleport 12+ (Purple Cap) 01/06/2021,12/16/2020 Influenza Inactivated/Split Preservative Free IM 06/14/2022,07/21/2021 Influenza, Quadrivalent (FLU ARIX, AFLURIA, FLULAVAL, FLUZONE) Preservative Free IM 06/11/2019,05/30/2018 Family History Medical History Relation Name Comments Diabetes Brother Michelet Virk Diabetes Father Edgar Virk Breast cancer Maternal Aunt 1 Hipolita Robledo Breast cancer Maternal Aunt 2 Laura Robledo Arthritis Mother April Robledo Relation Name Status Comments Brother Michelet Cottonarado Father Edgar Cottonarado Maternal Aunt 1 Hipolita Robledo Maternal Aunt 2 Laura Robledo Mother April Robledo Social History Tobacco Use Types Packs/Day Years [...] not to disclose 2022 10:47 AM EST Last Filed Vital Signs Vital Sign Reading Time Taken Comments Blood Pressure 126/80 03/21/2023 9:07 AM EDT Pulse 66 03/21/2023 9:07 AM EDT Temperature 36.5 C (97.7 F) 10/04/2022 2:02 PM EST Respiratory Rate 18 10/04/2022 10:40 AM EST Oxygen Saturation 98% 03/21/2023 9:07 AM EDT Inhaled Oxygen Concentration - - Weight 82.1 kg (181 lb) 03/21/2023 9:07 AM EDT Height 157.5 cm (5' 2 ) 03/21/2023 9:07 AM EDT Body Mass Index 33.11 03/21/2023 9:07 AM EDT Plan of Treatment Health Maintenance Due Date Last Done Comments Hepatitis C Virus Screening 1985 DTaP/Tdap/Td Vaccines (1 - Tdap) 01/21/2004 Hepatitis B Vaccines (1 of 3 - 19+ 3-dose series) 01/21/2004 Pneumococcal Vaccine: Pediat cedric (0-5 Years) and At-Risk Patients (6 to 49 Years) (1 of 2 - PCV) 01/21/2004 Mammogram 2025 Pap Smear (Ages 21-65) 03/16/2025 03/16/2022 Influenza Vaccine 03/21/2025 06/14/2022, , 06/11/2019, Additional history exists COVID-19 Vaccine ( - 2024-2 6 season) 2025 01/06/2021, 12/16/2020 HIV Screening Completed 06/17/2019 HPV Vaccines (No Doses Required) Completed Procedures Procedure Name Priority Date/Time Associated Diagnosis Comments THINPREP PAP TEST (INVESTMENT STRATEGIST) WITH HPV SCREEN, GC/CT Routine 03/16/2022 9:20 AM EDT Routine gynecological examination Special screening examination for human papillomavirus (HPV) Screening examination for venereal disease from Last 3 Months or Most Recently Relevant to Health Maintenance Results * ThinPrep Pap Test (Clinical Cytopathologist) with HPV Screen, GC/CT (03/16/2022 9:20 AM EDT) Clinical Information [facility] Comment:None given LMP: [facility] Comment:UNSURE Previous PAP: [facility] Comment:NONE GIVEN Previous Biopsy Ques [email or web address] Comment:NONE GIVEN Source: [facility] Comment:Cervix, Endocervix Statement of Adequacy: [facility] Comment: Satisfactory for evaluation. Endocervical/transformation zone component present. Age and/or menstrual status not provided Interpretation/Res ult: [facility] Comment:Negative for intraep ithelial lesion or malignancy. Comment: [facility] Comment: This Pap test has been evaluated with computer assisted technology. Blood Bank Custodian: [employer] Comment: RMM, CT(ASCP) CT screening location: [place] [address] Comment [facility] Comment: EXPLANATORY NOTE: The Pap is a screening test for cervical cancer. It is not a diagnostic test and is subject to false negative and false positive results. It is most reliable when a satisfactory sample, regularly obtained, is submitted with relevant clinical findings and history, and when the Pap result is evaluated along with historic and current clinical information. Hpv Mrna [id number] Not Detected Not Detected [facility] Comment: Methodology: Unleavened Dough Mixer-Mediated Amplification This assay detects E6/E7 viral messenger RNA (mRNA) from 14 high-risk HPV types (16,18,31,33,35,39,45,51,52,56,58,59,66,68). Cervical sources are required for HPV testing. If a vaginal source from a patient who has had a total hysterectomy with removal of cervix was submitted, please contact the testing laboratory for alternative testing options. For additional information, please refer to http://education.dot429/faq/ERE815y2 (This link if provided for information/ educational purposes only.) Chlamydia Trachomatis RNA, TMA NOT DETECTED NOT DETECTED [facility] Neisseria Gonorrhoeae RNA, TMA NOT DETECTED NOT DETECTED [facility] Chlamydia Trachomatis RNA, TMA Comment [facility] Comment: The analytical performance characteristics of this assay, when used to test SurePath(TM) specimens have been determined by [facility]. The modifications have not been cleared or approved by the FDA. This assay has been validated pursuant to the CLIA regulations and is used for clinical purposes. For additional information, please refer to https://education.Tango.ThrowMotion/faq/PYE424 (This link is being provided for information/ educational purposes only.) 03/16/2022 9:20 AM EDT 03/16/2022 10:10 PM EDT us Blessing Gill CNM LAB AMB PATH/CYTO ORDERABLES F inal Result [facility] [address] [place] [address], [place] [address] from Last 3 Months or Most Recently Relevant to Health Maintenance [facility] Advance Directives * Full Code (Latest Code Status on File) Date Activated Date Inactivated Comments 12/10/2021 7:31 AM 10/04/2022 10:31 AM Care Teams Radio Interference Investigator Relationship Specialty Start Date End Date Brooke Caldwell MD [address] [address] PCP - General Internal Medicine 07/21/21 Zach Cardenas MD [address] [place] [address] Surgery, Orthopedic 08/03/22
--- OUTSIDE RECORDS SUMMARY | 2025-08-12 20:42 | XMS_ITS | Encounter Summary ---
Author Organization [facility] Address [address] [place] [address] Care Team Providers Care Smoking Tobacco Packing Machine Hand Name Role Phone Brooke Caldwell MD Primary Care Provider Zach Cardenas MD Unavailable [phone] Brooke Caldwell MD Unavailable [phone] Encounter Details Date Type Department Care Team (Late st Contact Info) Description 08/03/2022 Scanned Document [facility] ORTHO SURGERY SCAN Orthopedic Surgery, Scan Social History Tobacco Use Types Packs/Day Years [...] not to disclose 2022 10:47 AM EST documented as of this encounter Plan of Treatment Not on file documented as of this encounter Visit Diagnoses Not on filedocumented in this encounter Care Teams Smoking Tobacco Packing Machine Hand Relationship Specialty Start Date End Date Brooke Caldwell MD [address] [place] [address] PCP - General Internal Medicine 07/21/21 Brooke Caldwell MD [address] [place] [address] PCP - [facility] Attributed 05/21/22 Zach Cardenas MD [address] [place] [address] Surgery, Orthopedic 08/03/22 documented as of this encounter
--- OUTSIDE RECORDS SUMMARY | 2025-08-12 20:42 | XMS_ITS | Encounter Summary ---
Author Organization [facility] Address [address] [place] [address] Care Team Providers Care Health Care Sanitary Technician Name Role Phone Brooke Caldwell MD Primary Care Provider Zach Cardenas MD Unavailable [phone] Brooke Caldwell MD Unavailable [phone] Encounter Details Date Type Department Care Team (Late st Contact Info) Description 10/05/2021 Scanned Document [employer] [address] [place], [place] [phone] Teddy Metz MD [address] [place], [place] Social History Tobacco Use Types Packs/Day Years [...] on filedocumented in this encounter Care Teams Health Care Sanitary Technician Relationship Specialty Start Date End Date Brooke Caldwell MD [address] [address] PCP - General Internal Medicine 07/21/21 Brooke Caldwell MD [address] [place] [address] PCP - [facility]+ Attributed 05/21/22 Zach Cardenas MD [address] [place] [address] Surgery, Orthopedic 08/03/22 documented as of this encounter
--- OUTSIDE RECORDS SUMMARY | 2025-08-12 20:42 | XMS_ITS | Encounter Summary ---
Author Organization [facility] Address [address] [place] [address] Care Team Providers Care Public Relations Sales Marketing Name Role Phone Brooke Caldwell MD Primary Care Provider Zach Cardenas MD Unavailable [phone] Encounter Details Date Type Department Care Team (Late st Contact Info) Description 10/04/2022 Scanned Document [facility] EMERGENCY MED SCAN Emergency Medicine, Scan Social History Tobacco Use Types Packs/Day [...] suspected to have Coronavirus/COVID-19? No / Unsure 10/04/2022 1:40 PM EST documented as of this encounter Functional Status * Level of Risk per Screen Answer Date of Assessment Author Low Risk 10/04/2022 10:39 AM EST Umesh Real RN documented as of this encounter Plan of Treatment Not on file documented as of this encounter Visit Diagnoses Not on filedocumented in this encounter Care Teams Public Relations Sales Marketing Relationship Specialty Start Date End Date Brooke Caldwell MD [address] [place] [address] PCP - General Internal Medicine 07/21/21 Zach Cardenas MD [address] [place] [address] Surgery, Orthopedic 08/03/22 documented as of this encounter
--- OUTSIDE RECORDS SUMMARY | 2025-08-12 20:43 | XMS_ITS | Encounter Summary ---
Author Organization [facility] Address [address] [place] [address] Care Team Providers Care Systems Applications Programming Lead Name Role Phone Brooke Caldwell MD Primary Care Provider Zach Cardenas MD Unavailable [phone] Brooke Caldwell MD Unavailable [phone] Encounter Details Date Type Department Care Team (Late st Contact Info) Description 07/22/2021 Scanned Document [facility] PRIMARY CARE SCAN Primary Care, Scan Social History Tobacco Use Types Packs/Day [...] have Coronavirus / COVID-19? No / Unsure 07/21/2021 7:47 AM EST documented as of this encounter Plan of Treatment Not on file documented as of this encounter Visit Diagnoses Not on filedocumented in this encounter Care Teams Systems Applications Programming Lead Relationship Specialty Start Date End Date Brooke Caldwell MD [address] [place] [address] PCP - General Internal Medicine 07/21/21 Brooke Caldwell MD [address] [place] [address] PCP - [facility]+ Attributed 05/21/22 Zach Cardenas MD 1 [place] [address] Surgery, Orthopedic 08/03/22 documented as of this encounter
--- OUTSIDE RECORDS SUMMARY | 2025-08-12 20:43 | XMS_ITS | Encounter Summary ---
Author Organization [facility] Address [address] [place] [address] Care Team Providers Care Media Job Titles Name Role Phone Brooke Caldwell MD Primary Care Provider Zach Cardenas MD Unavailable [phone] Brooke Caldwell MD Unavailable [phone] Encounter Details Date Type Department Care Team (Late Contact Info) Description 07/27/2021 Scanned Document [facility] PRIMARY CARE SCAN Primary Care, Scan [...] on filedocumented in this encounter Care Teams Media Job Titles Relationship Specialty Start Date End Date Brooke Caldwell MD [address] [place] [address] PCP - General Internal Medicine 07/21/21 Brooke Caldwell MD [address] [place] [address] PCP - [facility]+ Attributed 05/21/22 Zach Cardenas MD [address] [place] [address] Surgery, Orthopedic 08/03/22 documented as of this encounter
--- OUTSIDE RECORDS SUMMARY | 2025-08-12 20:43 | XMS_ITS | Encounter Summary ---
Author Organization [facility] Address [address] [place] [address] Care Team Providers Care Hogshead Stripper Name Role Phone Brooke Caldwell MD Primary Care Provider Zach Cardenas MD Unavailable [phone] Brooke Caldwell MD Unavailable [phone] Encounter Details Date Type Department Care Team (Late st Contact Info) Description 09/04/2021 Scanned Document [address] [place] [phone] Brooke Caldwell MD [address] [place] [address] Social History Tobacco Use Types Packs/Day Years [...] on filedocumented in this encounter Care Teams Hogshead Stripper Relationship Specialty Start Date End Date Brooke Caldwell MD [address] [address] PCP - General Internal Medicine 07/21/21 Brooke Caldwell MD [address] [place] [address] PCP - [facility]+ Attributed 05/21/22 Zach Cardenas MD [address] [place] [address] Surgery, Orthopedic 08/03/22 documented as of this encounter
--- OUTSIDE RECORDS SUMMARY | 2025-08-12 20:43 | XMS_ITS | Encounter Summary ---
Author Organization [facility] Address [address] [place] [address] Care Team Providers Care Legal Document Specialist Name Role Phone Brooke Caldwell MD Primary Care Provider Zach Cardenas MD Unavailable [phone] Brooke Caldwell MD Unavailable [phone] Encounter Details Date Type Department Care Team (Late st Contact Info) Description 07/22/2021 Scanned Document [facility] PRIMARY CARE SCAN Primary Care, Scan [...] on filedocumented in this encounter Care Teams Legal Document Specialist Relationship Specialty Start Date End Date Brooke Caldwell MD [address] [place] [address] PCP - General Internal Medicine 07/21/21 Brooke Caldwell MD [address] [place] [address] PCP - [facility]+ Attributed 05/21/22 Zach Cardenas MD [address] [place] [address] Surgery, Orthopedic 08/03/22 documented as of this encounter
--- OUTSIDE RECORDS SUMMARY | 2025-08-12 20:43 | XMS_ITS | Clinical Summary ---
Author Organization [facility] Address [address] [place] [address] Phone Care Team Providers Care [employer] Name Role Phone Vita Salinas PA-C Unavailable Payton Youssef DO Unavailable Blessing Solorzano MD Unavailable Josh Velasco MD Unavailable [phone] Unknown, Unknown Primary Care Provider Lynn lo Allergies No known active allergies Medications cholecalciferol (VITAMIN D3) 2,000 unit tablet VITAMIN D 2000 UNIT TABS 06/04/2018 Active cyanocobalamin, vitamin B-12, 1,000 mcg Cap B-12 1000 MCG CAPS 06/04/2018 Active omeprazole (PRILOSEC) 20 mg TbEC Take 20 mg by mouth daily before breakfast. Active famotidine (PEPCID) 10 MG tabletIndicatio ns:Heartburn Take 1 tablet (10 mg total) by mouth 2 (two) times a day as needed for heartburn. 06/11/2019 Active Active Problems Problem Noted Date Diagnosed Date Preventative health care 06/11/2019 Assessment & Plan (06/11/2019 10:35 AM EDT): Preventive Health Counseling/Education: 1) Healthy diet 2) Regular exercise 3) Regular dental/eye exams 4) Regular use of seat belt 5) sunscreen and skin checks 6) annual SALES MARKETING DIRECTOR care 7) Self breast exams Fasting labs ordered Pap up to date with SALES MARKETING DIRECTOR, will request records Flu shot today, up to date with tetanus per patient Schedule physical in 1 year Screening for human immunodeficiency virus 06/11 Assessment & Plan (06/11/2019 10:35 AM EDT): HIV screening ordered per 2019 quality metrics Heartburn 06/11/2019 Assessment & Plan (06/11/2019 10:34 AM EDT): Discussed to stop zantac due to recall and use pepcid as needed instead, discussed better to use pepcid instead of prn omeprazole. Discussed if heart burn worsens and she wants further workup to let us know. Follow GERD diet Excess skin 06/11/2019 Assessment & Plan (06/11/2019 10:35 AM EDT): Excess skin on panus, wants to see Dr. Velasco for plastic surgery to discuss options, referral placed Obese 05/30/2018 Assessment & Plan (06/11/2019 10:33 AM EDT): Obese, stable. Weight loss is recommended. Aim for about 5-10% of your total body weight loss to significant reduce risks of heart disease, diabetes, hypertension, etc. Resolved Problems Problem Noted Date Diagnosed Date Resolved Date Abdominal pain, epigastric 05/30/2018 0 10/28/2018 Immunizations Immunization Administration Dates Next Due Influenza Quadrivalent MDCK w/Preservative IM Influenza Quadrivalent Preservative Free IM 05/21 Family History Medical History Relation Comments Diabetes mellitus Father Diabetes melli tus Relation Status Comments Father Social History Tobacco Use Types Packs/Day Years Used Date Smoking Tobacco: Never Smokeless Tobacco: Never Alcohol Use Standard Drinks/Week Comments Never 0 (1 standard drink = 0.6 oz pur e alcohol) Education Answer Date Recorded Are you interested in more education? Not on сергей e 12/16/2022 Are you concerned about learning? Not on file 12/16/2022 No 12/16/2022 No 12/16/2022 Digital Access Answer Date Recorded No 01/13/2023 No 01/13/2023 No 01/13/2023 Reliable internet access at home? Not on file 01/13/2023 Device with a working camera? Not on file Comments Unknown Sex and Gender Information Value Date Recorded Sex Assigned at Not on file Legal Sex Female 10:01 AM EDT Gender Identity Not on file Sexual Orientation Not on file Last Filed Vital Signs Vital Sign Reading Time Taken Comments Blood Pressure 112/76 06/11/2019 9:55 AM EDT Pulse 64 06/11/2019 9:55 AM EDT Temperature 37.1 C (98.7 F) 06/11/2019 9:55 AM EDT Respiratory Rate - - Oxygen Saturation 98% 06/11/2019 9:55 AM EDT Inhaled Oxygen Concentration - - Weight 83.6 kg (184 lb 6.4 oz) 06/11/2019 9:55 A M EDT Height 157.5 cm (5' 2 ) 06/11/2019 9:55 AM EDT Body Mass Index 33.73 06/11/2019 9:55 AM EDT Plan of Treatment Health Maintenance Due Date Last Done Comments HEPATITIS C SCREENING 2003 DEPRESSION SCREENING 06/11/2020 06/11/2019 PAP SMEAR 10/04/2020 10/04/2017 MAMMOGRAM 2025 INFLUENZA VACCINE (#1) 2025 9, 05/30/2018, 09/01/2017 COVID-19 VACCINE (1 - 2024-2 6 season) 2025 Adult Td,Tdap Booster 09/01/2027 09/01/2017 SMOKING STATUS SCREENING (On ce After 26 Yrs) Completed 06/11/2019 HIV ONE-TIME SCREENING (18-6 5 YEARS) Completed 06/17/2019 HEPATITIS A VACCINES Aged Out No long er eligible based on patient's age to complete this topic HIB VACCINES Aged Out No longer eligi ble based on patient's age to complete this topic MENINGOCOCCAL VACCINES (ACWY) Aged Out No longer eligible based on patient's age to complete this topic MENINGOCOCCAL VACCINES (B) Aged Out N o longer eligible based on patient's age to complete this topic PNEUMOCOCCAL VACCINES (0-49 years) Aged Out No longer eligible b ased on patient's age to complete this topic Medical Devices Not on file Procedures Procedure Name Priority Date/Time Associated Diagnosis Comments HM PAP SMEAR FOR RESULT ENTRY ONLY Routine 10/04/2017 from Last 3 Months or Most Recently Relevant to Health Maintenance Results * PAP SMEAR FOR RESULT ENTRY ONLY (10/04/2017) Pap smear Normal us Historical Provider MD HEALTH MAINTENANCE Final Result from Last 3 Months or Most Recently Relevant to Health Maintenance Care Teams [employer] Relationship Specialty Start Date End Date Unknown, Unknown, MD PCP - General 04/20/22 Vita Salinas, JASEC [address] [place] [address] [address] [place] [address] [email or web address] Historical LMR Provider 09/20/18 Payton Youssef DO 22 [facility] [address] [place] [address] [email or web address] Historical LMR Provider 09/20/18 Blessing Solorzano MD [address] [place] [address] [address] [place] [address] Obstetrics and Gynecology 06/11/19 Josh Velasco MD [address] [place] [address] [email or web address] Plastic and Reconstructive Surgery 06/11/19 Additional Source Comments The information contained in this document represents components of the legal health record. It is not the complete legal health record.[facility]
--- OUTSIDE RECORDS SUMMARY | 2025-08-12 20:43 | XMS_ITS | Clinical Summary ---
Author Organization [facility] Address [address] [place] [address] Care Team Providers Care Special Delivery Clerk Name Role Phone jose Brooke Raymond Primary Care Provider [phone] Allergies No known active allergies Medications pantoprazole [...] Health Maintenance Due Date Last Done Comments Breast Cancer Screening 1985 HIV Screening 1985 DTaP,Tdap,and Td Vaccines (1 - Tdap) 2003 Hepatitis B Vaccines (1 of 3 - 19+ 3-dose series) 01/21/2004 Pap Smear 2006 HPV Vaccines (1 - 3-dose SCDM series) 01/21/2012 Cervical Cancer Screening 2015 HPV/Cotest 2015 COVID-19 Vaccine (3 - season) 2025 01/06/2021, 12/16/2020 Influenza Vaccine (#1) 2025 2, 07/21/2021, 06/11/2019, Additional history exists Zoster Vaccines (1 of 2) 2035 Hepatitis A Vaccines Aged Out No long er eligible based on patient's age to complete this topic MMR Vaccines Aged Out No longer eligi ble based on patient's age to complete this topic Meningococcal Vaccine Aged Out No gracia omayra eligible based on patient's age to complete this topic Pneumococcal Vaccine: At-Risk and Pediatric Patients (0 to 49 Years) Aged Out No longer eligi ble based on patient's age to complete this topic Insurance MEDICAID HUSKY A Care Teams Special Delivery Clerk Relationship Specialty Start Date End Date Brooke Caldwell [address] [place] [address] [address] [place] [address] PCP - General Internal Medicine 06/16/22
--- NOTE | 2025-08-12 20:50 | ED.ASTHMA ---
HPI - Asthma General Chief Complaint: Asthma Stated Complaint: Chest pain/SOB Time Seen by Provider: 08/12/25 20:39 Source: patient Mode of arrival: ambulatory Limitations: no limitations History of Present Illness ED Provider: NIMO HPI Narrative: 40-year-old female with past medical history of asthma who states she had pulmonary function test she thinks in [place] was told there were normal but she suffers from daily asthma she has a as needed albuterol inhaler and takes it more than she is supposed to. I asked her if she was ever on a steroid inhaler and she states no. She is not sure who her systems specialist is. She does not smoke. She states she gets chest tightness and shortness of breath when she exerts herself. She states she is wheezing. She has not had any fever, sputum. She states she no longer has an inhaler and she would normally treat herself with that at home. She has not been on prednisone in 3 months MD complaint: asthma attack , shortness of breath and wheezing Onset (ago): day(s) Severity: moderate Context: none known Associated symptoms: dry cough Asthma History: adult onset Related Data Home Medications ?Medication ?Instructions ?Recorded ?Confirmed escitalopram oxalate 10 mg tablet 10 mg PO DAILY 02/05/25 02/05/25 tirzepatide (weight loss) 2.5 2.5 mg subcut QWEEK 02/05/25 02/05/25 mg/0.5 mL subcutaneous pen injector (Zepbound) Previous Rx's ?Medication ?Instructions ?Recorded albuterol sulfate 90 mcg/actuation 1 inh inhalation QID PRN shortness 05/28/24 aerosol inhaler of breath or wheezing #8.5 grams lidocaine 4 % topical patch 1 patch topical DAILY PRN pain #30 12/04/24 (AsperFlex (lidocaine)) ea prednisone 20 mg tablet 40 mg (2 x 20 mg) PO DAILY 4 days 08/12/25 #8 tabs Allergies Allergy/AdvReac Type Severity Reaction Status Date / Time No Known Allergies Allergy Verified 08/12/25 20:16 Review of Systems Review of Systems: Yes all other systems are reviewed and are negative PMFSH Past Medical History Attestation statement: The following information was validated with the patient. Source: old records reviewed Medical History Asthma Surgical History Hx of removal of cyst Social History Social History Patient Tobacco Use Status: Never used Tobacco Advance Directives: No Advance Directives Information Provided: No Current occupational status: employed Current occupation: [employer], left hand dominant Physical Exam Vital Signs: Vital Signs: Last Vital Signs Temp 98.2 F 08/12/25 20:15 Pulse 73 08/12/25 21:13 Resp 15 08/12/25 21:13 BP 110/63 08/12/25 20:15 Pulse Ox 94 08/12/25 20:15 O2 Del Method Room Air 08/12/25 20:15 BMI result Body Mass Index 27.2 Appearance: Alert. Oriented X3. No acute distress. Eyes: Pupils equal, round and reactive to light. ENT: Pharynx normal. Neck: Normal inspection. Neck supple. CVS: Normal heart rate and rhythm. Pulses normal. Respiratory: No respiratory distress. Breath sounds diffuse expiratory wheezes in both lungs Abdomen: Soft and nontender. Skin: Skin warm and dry. Normal skin color. Normal skin turgor. Extremities: No lower extremity edema. No calf ttp Neuro: Oriented X 3. No motor deficit. No sensory deficit. CN2-12 intact Course Course Course Narrative: 10:02 PM 08/12/2025 (NIMO DUGGAN): Patient is much improved stable for DC Medications Administered Discontinued Medications Generic Name Dose Route Start Last Admin Trade Name Freq PRN Reason Stop Dose Admin Albuterol Sulfate 2.5 mg/ 0 mg 08/12/25 21:10 08/12/25 21:15 Albuterol/Ipratropium 3 ml INHALE 08/12/25 21:11 5 dose ONCE ONE Administration Prednisone 60 mg 08/12/25 20:58 08/12/25 21:19 Prednisone 20 Mg Tablet PO 08/12/25 20:59 60 mg ONCE ONE Administration Medical Decision Making Medical Decision Making MDM Narrative: 40-year-old female with years of asthma who states she normally gets chest tightness and pain when she has her asthma. She states she is using her albuterol rescue inhaler too much. She tells me she was told her PFTs were normal but she doubts that she is wheezing. She denies any infectious symptoms. She has no risk factors for ACS. She has no risk factors for VTE. She is wheezing on exam. At this time I am going to obtain basic labs, EKG, chest x-ray, give her neb therapy as well as started on oral prednisone. I will make sure she has an inhaler if her workup is reassuring Differential Diagnosis Differential Diagnoses: The differential diagnosis associated with the presentation includes Asthma, reactive airway disease Admission/Observation Consideration of admission/observation: Escalation of care including admission/observation considered Workup negative she is stable for DC Lab Data MDM Lab Attestation statement: I reviewed the patient's lab results. 08/12/25 20:53 08/12/25 20:53 Labs: Lab Results 08/12/25 Range/Units 20:53 WBC 11.2 H (4.8-10.8) X10*3/uL RBC 4.59 (4.20-5.50) X10*6/uL Hgb 14.5 (12.0-16.0) g/dl Hct 43.2 (37.0-47.0) % MCV 94.1 (80.0-98.0) fL MCH 31.6 (27.0-33.0) pg MCHC 33.6 (31.0-35.0) g/dl RDW 11.9 (11.0-16.0) % Plt Count 249 (160-400) X10*3/uL MPV 9.5 (9.4-12.3) fL Immature Gran % (Auto) 0.2 (0.0-0.4) % Neut % (Auto) 59.8 (45-73) % Lymph % (Auto) 27.9 (20-40) % [place] % (Auto) 5.5 (2-11) % Eos % (Auto) 6.2 H (0-4) % Baso % (Auto) 0.4 (0-2) % Lymph # (Auto) 3.1 (1.2-4.9) X10*3/uL [place] # (Auto) 0.6 (0.1-1.2) X10*3/uL Eos # (Auto) 0.7 H (0.0-0.4) X10*3/uL Baso # (Auto) 0.1 (0.0-0.2) X10*3/uL Abs Immat Gran (auto) 0.02 (0.00-0.03) X10*3/uL Absolute Neuts (auto) 6.7 (2.0-8.3) x10*3/uL Absolute Nucleated RBC 0.000 (0.0-0.012) X10*3/uL Nucleated RBC % (auto) 0.0 (0.0-0.2) /100WBC Sodium 141 (135-145) mmol/L Potassium 4.0 (3.3-5.1) mmol/L Chloride 108 (96-108) mmol/L Carbon Dioxide 28 (22-29) mmol/L Anion Gap 9 L (12-20) BUN 14 (9-16) mg/dL Creatinine 0.86 (0.5-1.4) mg/dL Estim Creat Clear Calc 78.4 Estimated GFR > 60 Random Glucose 88 (60-115) mg/dL Calcium 9.7 (8.4-10.2) mg/dL Magnesium 2.1 (1.6-2.6) mg/dL Total Bilirubin 0.4 (0.0-1.0) mg/dL AST 20 (5-31) U/L ALT 17 (0-31) U/L Alkaline Phosphatase 52 (39-117) U/L Troponin I High Sens < 2.7 (<3.5-17.0) ng/L NT-Pro-B Natriuret Pep 21.7 (<300) pg/mL Total Protein 7.2 (6.5-8.0) g/dL Albumin 4.5 (3.5-5.0) g/dL COVID-19 (DEX) Negative (Negative) COVID-19 Clin Com See Note Influenza Type A (CHUCHO) Negative (Negative) Influenza Type B ([facility]CHO) Negative (Negative) Influenza A & B Note See Note Independent Interpretation I performed an independent interpretation of an: EKG and Plain X-Ray (Normal) Interpretation: Rate: 83 Rhythm: Normal sinus rhythm [place]: Normal Normal P waves. Normal PERRI. Normal QRS complex. ST T wave : Inverted T-wave in V1, flat T-wave in aVL otherwise no ST-elevation qTC: 430 prior studies: No change from prior The study has been interpreted contemporaneously by me. . Radiology Impression Discussion of test interpretation with radiology: I have reviewed the radiologist's reading. External Record Review External record reviewed: Outpatient record Prescription Management I considered prescription management with: Other Discharge Plan Discharge Clinical Impression: Asthma with acute exacerbation Qualifiers: Asthma severity: moderate Asthma persistence: persistent Qualified Code(s): J45.41 - Moderate persistent asthma with (acute) exacerbation Patient Disposition: Home, Self-Care Instructions: Asthma (ED) Additional Instructions: At this time your labs, EKG, chest x-ray reassuring You do not have COVID flu or RSV Please take your inhaler as prescribed Return for any worsening symptoms or concerns next dose of prednisone is tomorrow Prescriptions: New prednisone 20 mg tablet 40 mg PO DAILY 4 Days Qty: 8 0RF No Action albuterol sulfate 90 mcg/actuation HFA aerosol inhaler 1 inh inhalation QID PRN (Reason: shortness of breath or wheezing) Qty: 8.5 0RF lidocaine [AsperFlex (lidocaine)] 4 % adhesive patch,medicated 1 patch topical DAILY PRN (Reason: pain) Qty: 30 0RF escitalopram oxalate 10 mg tablet 10 mg PO DAILY Zepbound 2.5 mg/0.5 mL pen injector 2.5 mg subcut QWEEK Rx Instructions: for 4 weeks Print Language: Faroese
[2025-08-12 20:58] LABS: MANUAL DIFF FLAG NO
[2025-08-12 20:59] LABS: Hematocrit 43.2 % (37.0-47.0); Hemoglobin 14.5 g/dl (12.0-16.0); Imm Gran Abs Auto 0.02 X10*3/uL (0.00-0.03); Imm Gran Pct Auto 0.2 % (0.0-0.4); Lymphocytes Absolute Auto 3.1 X10*3/uL (1.2-4.9); Mean Corpuscular HGB Conc 33.6 g/dl (31.0-35.0); Mean Corpuscular Hemoglobin 31.6 pg (27.0-33.0); Mean Corpuscular Volume 94.1 fL (80.0-98.0); NRBC Abs Auto 0.000 X10*3/uL (0.0-0.012); NRBC Pct Auto 0.0 /100WBC (0.0-0.2); Platelet Count 249 X10*3/uL (160-400); Red Blood Count 4.59 X10*6/uL (4.20-5.50); White Blood Count 11.2 X10*3/uL (4.8-10.8)
[2025-08-12 21:12] LABS: Alanine Aminotransferase 17 U/L (0-31); Albumin Level 4.5 g/dL (3.5-5.0); Alkaline Phosphatase 52 U/L (39-117); Anion Gap 9 (12-20); Aspartate Amino Transferase 20 U/L (5-31); Blood Urea Nitrogen 14 mg/dL (9-16); Calcium 9.7 mg/dL (8.4-10.2); Carbon Dioxide 28 mmol/L (22-29); Chloride 108 mmol/L (96-108); Creatinine Clr Calc Pharmacy 78.4; Estimated Glomerular Filt Rate > 60; Magnesium 2.1 mg/dL (1.6-2.6); Potassium 4.0 mmol/L (3.3-5.1); Sodium 141 mmol/L (135-145); Total Protein 7.2 g/dL (6.5-8.0)
[2025-08-12 21:13] VITALS: PULSE 73; RESP 15; O2SAT 99
[2025-08-12] MEDS: Albuterol Sulfate 2.5 MG, Albuterol/Iprat 2.5/0.5MG 3 ML 3 ML INHALE (21:15)
[2025-08-12 21:26] LABS: Troponin-I High Sensitivity < 2.7 ng/L (<3.5-17.0)
[2025-08-12 21:41] LABS: NT Pro B Type Natriuretic Pept 21.7 pg/mL (<300)
[2025-08-12 21:56] LABS: COVID-19 Test Negative (Negative); IDNOW Serial# 16C4AD1C
[2025-08-12 21:57] LABS: IDNOW Serial# 58CA691E; Influenza B2 Negative (Negative)
[2025-08-12] MEDS: Albuterol Sulfate 90 MCG 8 GM INHALER 2 PUFF INHALE (22:04)
[2025-08-12 22:07] VITALS: BP 119/71; PULSE 73; RESP 15; TEMP 36.6; O2SAT 98
== END 2025-08-12 22:08 | disposition home or self-care (01) ==
PROVIDERS: Emergency Provider Emergency Medicine; PCP Nurse Practitioner Family
DX: J45.41 Moderate persistent asthma with (acute) exacerbation (principal); R07.9 Chest pain, unspecified; R06.02 Shortness of breath; Z03.818 Encounter for observation for suspected exposure to other biological agents ruled out; R94.31 Abnormal electrocardiogram [ECG] [EKG]
CPT/HCPCS: 36415; 71045; 80053; 83735; 83880; 84484; 85025; 87502; 87635; 93005; 94640; 99284

== ENCOUNTER → 2025-08-12 19:58 | Outpatient (BNV) | payer OTHER, SELFPAY | PROVIDERS: Emergency Provider Emergency Medicine; PCP Nurse Practitioner Family; Visit Provider Internal Medicine Cardiovascular Disease | DX: R94.31 Abnormal electrocardiogram [ECG] [EKG] (principal); R07.9 Chest pain, unspecified | CPT/HCPCS: 93010 ==

== ENCOUNTER → 2025-08-12 21:12 | Outpatient (BNV) | payer OTHER, SELFPAY | PROVIDERS: Emergency Provider Emergency Medicine; PCP Nurse Practitioner Family; Visit Provider Student in an Organized Health Care Education/Training Program | DX: R06.02 Shortness of breath (principal) | CPT/HCPCS: 71045 ==